=== PATIENT | female | born 1960 | race Caucasian/White ===

== ENCOUNTER 2016-08-13 19:22 | Emergency (ER) | payer OTHER ==
[~2016-08-13] VITALS: Ht 170.2 cm; Wt 99.8 kg
[~2016-08-13 19:22] MED LIST: ARIP5TAB4 PO; DOXE50CA4 PO; FLUT1DIS IH; ROSU10TA PO; TOPI100T11 PO; VALS160T2 PO
[2016-08-13] MEDS ORDERED: HYDROMORPHONE HCL 2 MG TABLET PO STA (19:56)
[2016-08-13] MEDS ORDERED: ALBUTEROL FS 2.5 MG/3 ML VIAL.NEB NEB ONE (20:00)
[2016-08-13] MEDS ORDERED: IV NS 0.9% 1,000 ML BAG IV ONE (20:00)
[2016-08-13] MEDS ORDERED: IPRATROPIUM NEB FS 0.5 MG/2.5 ML AMPUL.NEB ONE (20:00)
[2016-08-13] MEDS ORDERED: ALBUTEROL FS 2.5 MG/3 ML VIAL.NEB ONE (20:00)
[2016-08-13] MEDS ORDERED: methylPREDNISolone SOD SUCC 125 MG/2ML VIAL IV ONE (20:00)
[2016-08-13] MEDS ORDERED: IPRATROPIUM NEB FS 0.5 MG/2.5 ML AMPUL.NEB NEB ONE (20:00)
[2016-08-13] MEDS ORDERED: PROCHLORPERAZINE EDISYLATE 10 MG/2 ML VIAL IV ONE (20:00)
[2016-08-13] MEDS ORDERED: PROCHLORPERAZINE EDISYLATE 10 MG/2 ML VIAL ONE (20:03)
[2016-08-13] MEDS ORDERED: IV SET PRIMARY 1 EA INFUS.SET MC ONE (20:04)
[2016-08-13] MEDS ORDERED: methylPREDNISolone SOD SUCC 125 MG/2ML VIAL ONE (20:04)
[2016-08-13] MEDS ORDERED: IV NS 0.9% 1,000 ML ONE (20:04)
[2016-08-13] MEDS ORDERED: HYDROMORPHONE HCL 2 MG TABLET ONE (20:04)
[2016-08-13 21:30] VITALS: BP 132/99
== END 2016-08-13 21:30 | disposition home or self-care (01) ==
LOC: ER 19:25
DX: G43.909 Migraine, unspecified, not intractable, without status migrainosus (principal); J45.909 Unspecified asthma, uncomplicated; F32.9 Major depressive disorder, single episode, unspecified; I10 Essential (primary) hypertension; Z88.0 Allergy status to penicillin
CPT/HCPCS: A4606; J0780; J2930; J7030; Z7610

== ENCOUNTER 2016-09-04 02:04 | Emergency (ER) | payer OTHER ==
[~2016-09-04] VITALS: Ht 170.2 cm; Wt 99.8 kg
[2016-09-04] MEDS ORDERED: HYDROMORPHONE HCL 2 MG TABLET ONE (02:55)
[2016-09-04] MEDS ORDERED: PROCHLORPERAZINE EDISYLATE 10 MG/2 ML VIAL ONE (02:55)
[2016-09-04] MEDS ORDERED: HYDROMORPHONE HCL 2 MG TABLET PO PRN (03:00)
[2016-09-04] MEDS ORDERED: PROCHLORPERAZINE EDISYLATE 10 MG/2 ML VIAL IVP ONE (03:00)
[2016-09-04 03:58] VITALS: BP 139/83
== END 2016-09-04 03:58 | disposition home or self-care (01) ==
LOC: ER 02:04
DX: G43.909 Migraine, unspecified, not intractable, without status migrainosus (principal); G89.29 Other chronic pain; J45.909 Unspecified asthma, uncomplicated; F32.9 Major depressive disorder, single episode, unspecified; I10 Essential (primary) hypertension; Z88.0 Allergy status to penicillin
CPT/HCPCS: 96374; 99284; A4606; J0780; Z7610

== ENCOUNTER 2021-08-03 13:15 | Outpatient (CLI) | payer SELFPAY ==
[~2021-08-03 13:15] MED LIST changes: +ARIP5TAB10 PO; -ARIP5TAB4 PO; -ROSU10TA PO; +ROSU10TA2 PO; +TOPI100T PO; -TOPI100T11 PO
[2021-08-03] MEDS ORDERED: BACI/NEOM/POLY B OINT PKT 1 UDPKT PACKET ONE (13:43)
== END 2021-08-03 23:59 | disposition home or self-care (01) ==
LOC: WOU 13:15
PROVIDERS: ATTEND Surgery
DX: S81.812A Laceration without foreign body, left lower leg, initial encounter (principal); W19.XXXA Unspecified fall, initial encounter; Y92.89 Other specified places as the place of occurrence of the external cause; R60.0 Localized edema; M79.662 Pain in left lower leg
CPT/HCPCS: 11042

== ENCOUNTER 2022-03-14 12:06 | Inpatient (IN) | payer BC ==
[~2022-03-14] VITALS: Ht 170.2 cm; Wt 91.6 kg
[2022-03-14] MEDS ORDERED: IV NS 0.9% 1,000 ML BAG IV ONE (12:30)
[2022-03-14] MEDS ORDERED: ONDA4TAB5 PO (12:36)
[2022-03-14] MEDS ORDERED: KETO60VI IM (12:36)
[2022-03-14] MEDS ORDERED: TEMA30CA5 PO (12:36)
[2022-03-14] MEDS ORDERED: FLUT1DIS3 IH (12:36)
[2022-03-14] MEDS ORDERED: BUDE180A IH (12:36)
[2022-03-14] MEDS ORDERED: VERA180T11 PO (12:36)
[2022-03-14] MEDS ORDERED: ONAB200V IJ (12:36)
[2022-03-14] MEDS ORDERED: LORA-259 PO (12:36)
[2022-03-14 13:16] LABS: BASOPHILS % (AUTO) 0.8 % (0.0-2.0); HEMATOCRIT 37 % (33-45); HEMOGLOBIN 12.4 g/dL (11.5-14.8); LYMPHOCYTES % (AUTO) 31.5 % (20.0-44.0); MEAN CORPUSCULAR HGB CONC 34 g/dl (31.0-36.0); MEAN CORPUSCULAR VOLUME 106 fL (82-100); MONOCYTES # (AUTO) 0.4 K/uL (0.1-1.30); NEUTROPHILS # (AUTO) 1.7 K/uL (1.8-8.9); NEUTROPHILS % (AUTO) 54.7 % (43.0-81.0); PLATELET COUNT (AUTO) 244 K/uL (150-450); RED BLOOD CELL COUNT(AUTO) 3.48 MIL/uL (4.0-5.2); WHITE BLOOD COUNT (AUTO) 3.2 K/uL (4.3-11.0)
[2022-03-14 13:44] LABS: EOSINOPHILS % (MANUAL) 1 % (0-4); LYMPHOCYTES % (MANUAL) 41 % (16-48); MONOCYTES % (MANUAL) 11 % (0-11.0); NEUTROPHILS % (MANUAL) 47 (42-76)
--- NOTE | 2022-03-14 13:45 | NUR ---
PIYUSH , HAD WALKED ACROSS THE ST TO PHYSICAL THERAPY APPT AND AFTER SIGNING PAPER WORK INSIDE [facility] FAINTED, PT CALLED [phone]
--- NOTE | 2022-03-14 13:47 | NUR ---
Marely collado in [facility] - 03/14/22 at 1630 by REE COVID ANTIGEN NOTED ON TEST - POSITIVE FOR COVID
--- NOTE | 2022-03-14 13:47 | NUR ---
ERROR COVID ANTIGEN NEGATIVE READ
--- NOTE | 2022-03-14 13:48 | NUR ---
IV LHAND GAUGE 20 INTACT, PATENT, & FLUSHING NS ADMIN
[2022-03-14 13:53] LABS: ALANINE AMINOTRANSFERASE 68 U/L (12-78); ALBUMIN 2.4 g/dL (3.4-5.0); ALKALINE PHOSPHATASE 146 U/L (46-116); ASPARTATE AMINOTRANSFERASE 120 U/L (15-37); BILIRUBIN,DIRECT 0.1 mg/dL (0.0-0.2); BILIRUBIN,TOTAL 0.8 mg/dL (0.2-1.0); CALCIUM, SERUM 7.8 mg/dL (8.5-10.1); CARBON DIOXIDE 24 mmol/L (21-32); CHLORIDE 105 mmol/L (98-107); CREATININE 0.6 mg/dL (0.6-1.3); GLUCOSE 91 mg/dL (74-106); POTASSIUM 3.7 mmol/L (3.5-5.1); SODIUM SERUM 140 mmol/L (136-145); TOTAL PROTEIN, SERUM 5.6 g/dL (6.4-8.2); UREA NITROGEN, BLOOD 7 mg/dL (7-18)
[2022-03-14] MEDS ORDERED: KETOROLAC TROMETHAMINE INJ 30 MG/ML VIAL ONE (15:42)
[2022-03-14] MEDS ORDERED: ONDANSETRON HCL/PF 4 MG/2 ML VIAL ONE (15:45)
[2022-03-14] MEDS ORDERED: ONDANSETRON HCL/PF - ER 4 MG/2 ML VIAL IV ONE (16:00)
[2022-03-14] MEDS ORDERED: KETOROLAC TROMETHAMINE INJ 30 MG/ML VIAL IV ONE (16:00)
[2022-03-14] MEDS ORDERED: BUTALBITAL/ASPIRIN/CAFFEINE 1 CAP CAPSULE PO PRN (17:30)
--- NOTE | 2022-03-14 17:37 | NUR ---
GOING TO 312.1
--- NOTE | 2022-03-14 18:34 | NUR ---
REPORT GIVEN TO LION RIBEIRO FOR ED
--- NOTE | 2022-03-14 18:45 | NUR ---
RN NOTES RECEIVED PATIENT IN STABLE CONDITION FROM ER. PATIENT IS A/O X4. ON RA WITH NO S/SX OF RESP DISTRESS NOTED. PLACED ON LONG LINES OPERATOR. LEFT HAND G#22 INTACT AND PATENT. SKIN CLEAR AND INTACT. SAFETY PRECAUTIONS IN PLACE. WILL ENDORSE TO THE HOT PLATE [employer]OD PRESS LABORER NURSE FOR ED
[2022-03-14] MEDS ORDERED: KETOROLAC TROMETHAMINE INJ 30 MG/ML VIAL IM PRN (19:00)
[2022-03-14] MEDS ORDERED: FLUTICASONE/SALMETEROL 1 DISK IH SCH (19:00)
--- NOTE | 2022-03-14 19:28 | NUR ---
RN NOTES PATIENT STABLE IN BED. NO COMPLAINTS AT THIS TIME. SAFETY PRECAUTIONS IN PLACE. ENDORSED REPORT TO THE WATER TRUCK DRIVER NURSE FOR ED
[2022-03-14] MEDS: ALBUTEROL FS 2.5 MG/0.5 ML VIAL.NEB NEB SCH (19:30)
[2022-03-14] MEDS: BUDESONIDE RESPULE INH 0.5 MG/2 ML AMPUL.NEB NEB SCH (19:30)
[2022-03-14] MEDS ORDERED: BUDESONIDE RESPULE INH 0.5 MG/2 ML AMPUL.NEB NEB PRN (19:30)
[2022-03-14 20:00] VITALS: BP 123/75
--- NOTE | 2022-03-14 20:00 | NUR ---
TELE/RN ADMITTING NOTE RECEIVED REPORT FROM QUINTIN SEYMOUR. PATIENT IS BEING ADMITTED WITH DX OF SYNCOPE. PATIENT CURRENTLY RESTING IN BED WITH FAMILY AT BEDSIDE. PATIENT IS ALERT AND ORIENTED X 4. ABLE TO MAKE NEEDS KNOWN. ENDORSES PAIN TO HEAD AND RIGHT SHOULDER PAIN LEVEL 7/10. STATES TORADOL DOES NOT HELP - WILL NOTIFY ELASTIC ATTACHER ZIGZAG MD. PATIENT CONTINUES ON ROOM AIR WITH NO S/SX OF RESPIRATORY DISTRESS NOTED. IV ACCES TO LEFT HAND #22G INTACT, PATENT AND SALINE LOCKED. CONTINUES ON CARDIAC DIET WITH NO C/O NAUSEA OR VOMITING. CONTINUES ON TELE MONITOR WITH CURRENT READING SR. SKIN CHECK PERFORMED WITH NO SKIN ISSUES NOTED. PATIENT IS AMBULATORY WITH STAND BY ASSIST D/T DIZZINESS. PATIENT ORIENTED TO CALL LIGHT, ROOM AND UNIT. CALL LIGHT WITHIN REACH. ASPIRATION, FALL AND SAFETY PRECAUTIONS MAINTAINED. ALL NEEDS ATTENDED TO AT THIS TIME.
--- NOTE | 2022-03-14 20:30 | NUR ---
TELE/RN NOTE NEW ORDER FROM DATA OFFICER MD WILLS FOR NORCO 5/325MG PRN FOR PAIN AND ZOFRAN Q6HRS FOR NAUSEA. ORDERS INPUTTED AND CARRIED OUT.
[2022-03-14] MEDS: HYDROCODONE/APAP 5/325MG TABLET PO PRN (20:43)
[2022-03-14 21:34] VITALS: BP 123/75
[2022-03-14] MEDS: ONDANSETRON HCL/PF 4 MG/2 ML VIAL IV PRN (22:52)
--- NOTE | 2022-03-14 23:00 | NUR ---
TELE/RN NOTE PATIENT WITH NAUSEA AND EPISODES OF EMESIS X 2. EMESIS BAG PROVIDED. ADMINISTERED PRN ZOFRAN PER MD ORDERS.
[2022-03-15] VITALS: BP 135/75
[2022-03-15] MEDS: BUDESONIDE RESPULE INH 0.5 MG/2 ML AMPUL.NEB NEB SCH ×4 (01:10→20:57)
[2022-03-15] MEDS: HYDROCODONE/APAP 5/325MG TABLET PO PRN ×5 (01:18→17:55)
[2022-03-15] MEDS: ALBUTEROL FS 2.5 MG/0.5 ML VIAL.NEB NEB SCH ×4 (01:26→20:57)
[2022-03-15 04:00] VITALS: BP 105/67
--- NOTE | 2022-03-15 05:00 | NUR ---
TELE/RN NOTE - ORTHOSTATIC BP'S BP WHILE LYING = 135/115 BP WHILE SITTING = 138/106 BP WHILE STANDING = 105/67 PATIENT ENDORSES DIZZINESS WHEN STANDING. PATIENT STATES "I KNOWN IM UNSTEADY WHEN WALKING BECAUSE IM DIZZY. I'LL CALL WHEN GETTING UP TO BATHROOM". PATIENT ENDORSES PAIN - WILL ADMINISTER MEDICATIONS PER MD ORDERS.
--- NOTE | 2022-03-15 06:20 | NUR ---
TELE/RN CLOSING NOTE PATIENT CURRENTLY RESTING IN BED. AWAKE, ALERT AND ORIENTED X 4. ABLE TO MAKE NEEDS KNOWN. DENIES PAIN AT THIS TIME. CONTINUES ON ROOM AIR WITH NO S/SX OF RESPIRATORY DISTRESS NOTED. IV ACCESS TO LEFT HAND #22G INTACT, PATENT AND SALINE LOCKED. CONTINUES ON CARDIAC DIET WITH EPISODES OF EMESIS X 2 THIS SHIFT. PATIENT IS AMBULATORY WITH STAND BY ASSIST. CALL LIGHT WITHIN REACH. ASPIRATION, FALL AND SAFETY PRECAUTIONS MAINTAINED. WILL ENDORSE PLAN OF CARE TO ONCOMING SHIFT RN.
--- NOTE | 2022-03-15 07:35 | NUR ---
RESIDENT CARE TECHNICIAN OPENING NOTES: RECEIVED PATIENT CURRENTLY RESTING IN BED, ALERT AND ORIENTED X 4. ABLE TO MAKE NEEDS KNOWN. REPORTS RIGHT SHOULDER PAIN AND HEADACHE 02/28. WILL MEDICATE ORDERED. NO S/S OF SOB OR ACUTE DISTRESS NOTED, ON ROOM AIR TOLERATING WELL. IV ACCES LEFT HAND #22G INTACT, PATENT AND SALINE LOCKED. TELE MONITOR WITH CURRENT READING SR WITH BBB, HR - 93. CALL LIGHT WITHIN REACH. ASPIRATION, FALL AND SAFETY PRECAUTIONS MAINTAINED, WILL CONT TO MONITOR.
[2022-03-15] MEDS: ONDANSETRON HCL/PF 4 MG/2 ML VIAL IV PRN ×3 (07:59→15:39)
[2022-03-15 08:00] VITALS: BP 120/104
[2022-03-15 08:01] LABS: ALBUMIN 2.4 g/dL (3.4-5.0); BILIRUBIN,DIRECT 0.6 mg/dL (0.0-0.2); BILIRUBIN,TOTAL 1.6 mg/dL (0.2-1.0); TOTAL PROTEIN, SERUM 5.4 g/dL (6.4-8.2)
--- NOTE | 2022-03-15 10:00 | NUR ---
ORTHOSTATIC BP 5 MIN LAYING DOWN: BP - 134/87, HR- 86 1 MIN STANDING UP- 131/102, HR- 104 3 MIN STANDING - 141/103, HR- 108
[2022-03-15] MEDS ORDERED: HYDROMORPHONE 1 MG/1 ML DISP.SYRIN IV PRN (10:30)
[2022-03-15] MEDS: IV D5/0.45 NACL 500 ML IV SCH ×3 (11:46→19:59)
[2022-03-15 12:00] VITALS: BP 123/91
--- NOTE | 2022-03-15 15:00 | NUR ---
NAUSEA/VOMITING PT HAD EMESIS X2 SINCE AM AND AFTER LUNCH. REPORTS ZOFRAN HELPS BUT NOT MUCH, REPORTS SHE TAKES 8MG AT HOME. RN SENT MSG TO MD FOR ADVISE ON CHANGE OF DOSE. CHANGE OF DOSE OK PER MD AND CONFIRMED BY PHARMACIST. WILL ADMINISTER ANTIEMETIC SCHEDULED.
[2022-03-15 16:00] VITALS: BP 135/92
[2022-03-15] MEDS: VERAPAMIL SR 180 MG CAP PO SCH (17:57)
[2022-03-15] MEDS: DOXEPIN HCL (25 MG) 25 MG CAPSULE PO SCH (18:06)
--- NOTE | 2022-03-15 19:38 | NUR ---
RN OPENING NOTES; RECEIVED PATIENT IN BED AA/O X4.ALESIA WELL ON RM AIR,NO SIGN SOB/DISTRESS NOTED,BREATHING EVEN AND UNLABORED,IV ACCESS ON LEFT HAND G#22 INTACT AND PATENT. SAFETY PRECAUTIONS IN PLACE.BED LOW AND LOCKED POSITION,CALL LIGHT WITHIN REACH, WILL CONTINUE TO MONITOR.
--- NOTE | 2022-03-15 19:41 | NUR ---
DEVELOPMENT OFFICER CLOSING NOTES: RECEIVED PATIENT CURRENTLY RESTING IN BED, ALERT AND ORIENTED X 4. ABLE TO MAKE NEEDS KNOWN. DENIES PAIN AND N/V AT THIS TIME. NO S/S OF SOB OR ACUTE DISTRESS NOTED, ON ROOM AIR TOLERATING WELL. IV ACCES LEFT HAND #22G, RUNNING D5 1/2 NS @ 100ML/HR. TELE MONITOR WITH CURRENT READING SR WITH BBB, AV BLOCK, HR - 92. CALL LIGHT WITHIN REACH. ASPIRATION, FALL AND SAFETY PRECAUTIONS MAINTAINED, ENDORSED TO PM SHIFT.
[2022-03-15 20:46] VITALS: BP 118/80
[2022-03-16] MEDS: HYDROCODONE/APAP 5/325MG TABLET PO PRN ×5 (00:25→20:59)
[2022-03-16] MEDS: IV D5/0.45 NACL 500 ML IV SCH ×5 (00:28→21:47)
[2022-03-16 00:43] VITALS: BP 99/53
[2022-03-16] MEDS: ALBUTEROL FS 2.5 MG/0.5 ML VIAL.NEB NEB SCH ×4 (01:48→20:27)
[2022-03-16] MEDS: BUDESONIDE RESPULE INH 0.5 MG/2 ML AMPUL.NEB NEB SCH ×4 (01:48→20:27)
[2022-03-16] MEDS: ONDANSETRON HCL/PF 4 MG/2 ML VIAL IV PRN (03:32)
[2022-03-16 03:52] VITALS: BP 117/84
[2022-03-16 06:07] LABS: BASOPHILS % (AUTO) 0.7 % (0.0-2.0); EOSINOPHILS % (AUTO) 1.8 % (0.0-6.0); HEMATOCRIT 34 % (33-45); HEMOGLOBIN 11.6 g/dL (11.5-14.8); LYMPHOCYTES % (AUTO) 33.8 % (20.0-44.0); MEAN CORPUSCULAR HGB CONC 35 g/dl (31.0-36.0); MEAN CORPUSCULAR VOLUME 107 fL (82-100); MONOCYTES # (AUTO) 0.3 K/uL (0.1-1.30); MONOCYTES % (AUTO) 9.8 % (2.0-12.0); NEUTROPHILS # (AUTO) 1.6 K/uL (1.8-8.9); NEUTROPHILS % (AUTO) 53.9 % (43.0-81.0); PLATELET COUNT (AUTO) 203 K/uL (150-450); RED BLOOD CELL COUNT(AUTO) 3.15 MIL/uL (4.0-5.2)
--- NOTE | 2022-03-16 06:18 | NUR ---
RN CLOSING NOTES;312 PATIENT IN BED AA/O X4.ALESIA WELL ON RM AIR,NO SIGN SOB/DISTRESS NOTED,BREATHING EVEN AND UNLABORED,DUE MEDS GIVEN ORDERED,ALL NEEDS ATTENDED,IV ACCESS ON LEFT HAND G#22 INTACT AND PATENT. SAFETY PRECAUTIONS IN PLACE.BED LOW AND LOCKED POSITION,CALL LIGHT WITHIN REACH, WILL ENDORSED TO NEXT SHIFT.
[2022-03-16 06:49] LABS: ALBUMIN 2.4 g/dL (3.4-5.0); BILIRUBIN,TOTAL 1.8 mg/dL (0.2-1.0); CREATININE 0.9 mg/dL (0.6-1.3); MAGNESIUM 1.7 mg/dL (1.8-2.4); PHOSPHORUS 4.1 mg/dL (2.5-4.9); POTASSIUM 3.8 mmol/L (3.5-5.1); TOTAL PROTEIN, SERUM 5.3 g/dL (6.4-8.2)
--- NOTE | 2022-03-16 07:30 | NUR ---
SPOT WASHER OPENING NOTES: RECEIVED PATIENT IN BED, AWAKE. ALERT AND ORIENTED X 4 AND ABLE TO MAKE NEEDS KNOWN. NO SOB OR CARDIAC DISTRESS NOTED, ON ROOM AIR AND TOLERATING WELL.ON KEYPUNCHER WITH CURRENT READING OF FIRST DEGREE AV BLOCK @73 BPM. NOTED WITH IV ACESS ON LEFT HAND D5 1/2 NS @100ML/HR, PATENT AND INTACT. SAFETY PRECAUTIONS MAINTAINED: BED IN LOWEST AND LOCKED POSITION, SIDE RAILS UP X 2. CALL LIGHT IN EASY REACH FOR HELP OR ASSISTANCE. WILL MONITOR PATIENT ACCORDINGLY.
[2022-03-16 08:00] VITALS: BP 121/84
[2022-03-16] MEDS: Magnesium 1GM/D5W 100ML PREMIX 100 ML IV SCH ×3 (08:17→10:00)
--- NOTE | 2022-03-16 08:33 | NUR ---
RN NOTES: PATIENT REFUSED TO HAVE MAGNESIUM 2GRMS IV. PER PATIENT SHE'S HAD A BAD STOMACH PAIN FROM PREVIOUS HOSPITALIZATION. INFORMED DR CHISHOLM.
[2022-03-16 12:00] VITALS: BP_SYST 120; BP_SYST 127; BP_DIAS 74; BP_DIAS 93
[2022-03-16 16:00] VITALS: BP 124/70
[2022-03-16] MEDS ORDERED: LIDOCAINE /MPF 1% VIAL 5 ML VIAL TP ONE (16:00)
[2022-03-16] MEDS: DOXEPIN HCL (25 MG) 25 MG CAPSULE PO SCH (17:19)
[2022-03-16] MEDS: VERAPAMIL SR 180 MG CAP PO SCH (17:24)
--- NOTE | 2022-03-16 19:00 | NUR ---
DIAMOND SAWER CLOSING NOTES: PATIENT IN BED, AWAKE. ALERT AND ORIENTED X 4 AND ABLE TO MAKE NEEDS KNOWN. NO SOB OR CARDIAC DISTRESS NOTED, ON ROOM AIR AND TOLERATING WELL.ON [employer] SALES ENGINEER WITH CURRENT READING OF SINUS RHYTHM @90 BPM. NOTED WITH IV ACESS ON LEFT HAND D5 1/2 NS @100ML/HR, PATENT AND INTACT. ON PAIN MANAGEMENT DUE TO SEVERE HEADACHE. SAFETY PRECAUTIONS MAINTAINED: BED IN LOWEST AND LOCKED POSITION, SIDE RAILS UP X 2. CALL LIGHT IN EASY REACH FOR HELP OR ASSISTANCE. WILL MONITOR PATIENT ACCORDINGLY. ENDORSED TO CLIP BAKER NURSE FOR ED.
--- NOTE | 2022-03-16 19:06 | NUR ---
FLOUR TESTER CLOSING NOTES: PATIENT IN BED, AWAKE. ALERT AND ORIENTED X 4 AND ABLE TO MAKE NEEDS KNOWN. NO SOB OR CARDIAC DISTRESS NOTED, ON ROOM AIR AND TOLERATING WELL.ON MATERIALS SUPERVISOR WITH CURRENT READING OF SINUS RHYTHM @90 BPM. NOTED WITH IV ACESS ON LEFT HAND D5 1/2 NS @100ML/HR, PATENT AND INTACT. ON PAIN MANAGEMENT DUE TO SEVERE HEADACHE. SAFETY PRECAUTIONS MAINTAINED: BED IN LOWEST AND LOCKED POSITION, SIDE RAILS UP X 2. CALL LIGHT IN EASY REACH FOR HELP OR ASSISTANCE. WILL MONITOR PATIENT ACCORDINGLY. ENDORSED TO PACKING SHED SUPERVISOR NURSE FOR ED.
--- NOTE | 2022-03-16 19:33 | NUR ---
DIP PAINTER OPENING NOTES: RECEIVED PATIENT AWAKE IN BED, BED IN LOW POSITION CALL LIGHTS WITHIN REACH, NO COMPLAIN OF PAIN AND DISCOMFORT AT THIS TIME, ON ROOM AIR SATURATING WELL, ON TELE [id number] WITH BBB, PATIENT IS A/OX4 ABLE TO MAKE NEEDS KNOWN,WITH IV LINE AT L HAND#22 WITH ONGOING D5NSSa@100ML/HR INFUSING WELL, AMBULATORY REMIND PATIENT TO USE CALL LIGHTS WHEN NEEDED ASSISTANCE, PATIENT KEPT CLEAN AND DRY ALL NEEDS MET WILL CONTINUE TO MONITOR.
[2022-03-16 20:00] VITALS: BP 126/79
[2022-03-17] VITALS: BP 102/72
[2022-03-17] MEDS: ALBUTEROL FS 2.5 MG/0.5 ML VIAL.NEB NEB SCH ×3 (01:40→13:16)
[2022-03-17] MEDS: HYDROCODONE/APAP 5/325MG TABLET PO PRN ×3 (01:40→11:49)
[2022-03-17] MEDS: BUDESONIDE RESPULE INH 0.5 MG/2 ML AMPUL.NEB NEB SCH ×3 (01:40→13:16)
[2022-03-17] MEDS: IV D5/0.45 NACL 500 ML IV SCH ×2 (02:11→06:14)
[2022-03-17 04:00] VITALS: BP 131/86
[2022-03-17 06:32] LABS: BASOPHILS % (AUTO) 0.6 % (0.0-2.0); EOSINOPHILS % (AUTO) 2.3 % (0.0-6.0); HEMATOCRIT 32 % (33-45); HEMOGLOBIN 11.1 g/dL (11.5-14.8); LYMPHOCYTES # (AUTO) 0.9 K/uL (0.8-4.8); LYMPHOCYTES % (AUTO) 30.3 % (20.0-44.0); MEAN CORPUSCULAR HGB CONC 34 g/dl (31.0-36.0); MEAN CORPUSCULAR VOLUME 106 fL (82-100); MONOCYTES # (AUTO) 0.3 K/uL (0.1-1.30); MONOCYTES % (AUTO) 9.5 % (2.0-12.0); NEUTROPHILS # (AUTO) 1.7 K/uL (1.8-8.9); NEUTROPHILS % (AUTO) 57.3 % (43.0-81.0); PLATELET COUNT (AUTO) 203 K/uL (150-450); RED BLOOD CELL COUNT(AUTO) 3.05 MIL/uL (4.0-5.2)
[2022-03-17 06:59] LABS: ALBUMIN 2.3 g/dL (3.4-5.0); BILIRUBIN,TOTAL 1.9 mg/dL (0.2-1.0); CALCIUM, SERUM 7.7 mg/dL (8.5-10.1); CREATININE 0.7 mg/dL (0.6-1.3); MAGNESIUM 1.6 mg/dL (1.8-2.4); PHOSPHORUS 4.1 mg/dL (2.5-4.9); POTASSIUM 3.7 mmol/L (3.5-5.1)
--- NOTE | 2022-03-17 07:14 | NUR ---
STAFF THERAPIST CLOSING NOTES: PATIENT AWAKE IN BED, BED IN LOW POSITION CALL LIGHTS WITHIN REACH, NO COMPLAIN OF PAIN AND DISCOMFORT AT THIS TIME, ON ROOM AIR SATURATING WELL, PATIENT IS A/OX4 ABLE TO MAKE NEEDS KNOWN, AMBULATORY, ON TELE MONITOR- SR-86 WITH BBB, WITH IV LINE AT LEFT HAND#22 WITH ONGOING D5 1/2 NSS@100ML/HR INFUSING WELL, PATIENT KEPT CLEAN AND DRY ALL NEEDS MET ENDORSE TO INCOMING SHIFT.
--- NOTE | 2022-03-17 07:37 | NUR ---
SENIOR BUYER OPENING NOTES: RECEIVED PATIENT IN BED, AWAKE. ALERT AND ORIENTED X 4 AND ABLE TO MAKE NEEDS KNOWN. NO SOB OR CARDIAC DISTRESS NOTED, ON ROOM AIR AND TOLERATING WELL.ON CASH MANAGEMENT SPECIALIST WITH CURRENT READING OF SR WITH BBB @90 BPM. NOTED WITH IV ACCESS ON LEFT HAND D5 1/2 NS @100ML/HR, PATENT AND INTACT. SAFETY PRECAUTIONS MAINTAINED: BED IN LOWEST AND LOCKED POSITION, SIDE RAILS UP X 2. CALL LIGHT IN EASY REACH FOR HELP OR ASSISTANCE. WILL MONITOR PATIENT ACCORDINGLY.
[2022-03-17 08:00] VITALS: BP 111/86
[2022-03-17] MEDS: DIVALPROEX SODIUM 250 MG TABLET.DR PO SCH ×2 (09:00→13:00)
--- NOTE | 2022-03-17 09:04 | NUR ---
RN NOTES: OFFERED DEPAKOTE TAB, PATIENT REFUSED. DID NOT PULL OUT MEDS IN OMNICELL.
[2022-03-17 10:15] LABS: EOSINOPHILS % (MANUAL) 3 % (0-4); LYMPHOCYTES % (MANUAL) 32 % (16-48); MONOCYTES % (MANUAL) 7 % (0-11.0); NEUTROPHILS % (MANUAL) 58 (42-76)
[2022-03-17] MEDS ORDERED: MAGNESIUM OXIDE 400 MG TABLET PO ONE (12:00)
--- NOTE | 2022-03-17 15:48 | NUR ---
AMA NOTES: Patient decided to go home, explained to patient that there's no order yet for discharge. As per patient she felt better. Patient decided to leave hospital against medical advice. Explained the risk and benefits of going AMA, patient verbalized understanding and signed the AMA form, Patient alert and oriented x 4 and able to verbalized needs. No SOB or cardiac distress noted. Denies any pain at this time, ice packs provided that relieve patient's headache. Patient on pain management as ordered. Patient will be picked up by her sister that live closed by. All belongings carried with the resident and signed the belonging's list. Skin is intact. Vitals WNL. Cut the identification band. RN wheeled the patient in the lobby, remained stable. Addendum: 03/17/22 at 1551 by KATHRYN WE[address]ALL RN Dr Merrill made aware that patient wanted AMA.
== END 2022-03-17 15:45 | disposition left against medical advice (07) | DRG 74 ==
LOC: ER 12:08 → TELE 18:07 → MED 03-17 10:01
PROVIDERS: ADMIT Student in an Organized Health Care Education/Training Program; ATTEND Student in an Organized Health Care Education/Training Program
DX: G90.8 Other disorders of autonomic nervous system (principal); E44.0 Moderate protein-calorie malnutrition; E87.2 Acidosis; I45.10 Unspecified right bundle-branch block; R74.01 Elevation of levels of liver transaminase levels; G43.909 Migraine, unspecified, not intractable, without status migrainosus; J45.909 Unspecified asthma, uncomplicated; F32.A Depression, unspecified; Z98.890 Other specified postprocedural states; Z96.611 Presence of right artificial shoulder joint; Z98.891 History of uterine scar from previous surgery; Z88.1 Allergy status to other antibiotic agents; Z88.0 Allergy status to penicillin; Z88.8 Allergy status to other drugs, medicaments and biological substances; Z91.09 Other allergy status, other than to drugs and biological substances; Z79.899 Other long term (current) drug therapy; Z53.29 Procedure and treatment not carried out because of patient's decision for other reasons; Z82.49 Family history of ischemic heart disease and other diseases of the circulatory system; Z82.5 Family history of asthma and other chronic lower respiratory diseases; D75.89 Other specified diseases of blood and blood-forming organs; D64.9 Anemia, unspecified; D70.9 Neutropenia, unspecified; E78.5 Hyperlipidemia, unspecified; I10 Essential (primary) hypertension
CPT/HCPCS: 36415; 70450-TC; 71045-TC; 72125-TC; 76700-TC; 78226; 80048-TC; 80053-TC; 80076-TC; 82607-TC; 83605-TC; 83735-TC; 84100-TC; 84484-TC; 85025-TC; 85378-TC; 87040-TC; 87081-TC; 93307-TC; 94799-TC; 97116-TC; 97530-TC; A9537; C9803; G0378; J1885; J2405; J3475; J3490; J7060